=== PATIENT | female | born 1985 | race Caucasian/White ===

== ENCOUNTER 2017-08-22 06:13 | Day surgery (SDC) | payer OTHER ==
[2017-08-14 09:14] VITALS: BMI 27.3
[2017-08-22 06:56] VITALS: TEMP 98.4; O2SAT 100
[2017-08-22] MEDS ORDERED: Lidocaine 2% Inj (20ml) ONE (08:06)
[2017-08-22] MEDS ORDERED: Propofol 10 mg/ml Inj (20 ML) ONE (08:06)
[2017-08-22] MEDS ORDERED: Sodium Chloride 0.9% 1,000 ML IV SCH (08:45)
[2017-08-22 09:29] VITALS: BP 118/73; PULSE 63; RESP 18
== END 2017-08-22 09:54 | disposition home or self-care (01) ==
LOC: ENDO 06:13
PROVIDERS: ATTEND Internal Medicine
DX: K51.20 Ulcerative (chronic) proctitis without complications (principal); K52.9 Noninfective gastroenteritis and colitis, unspecified; K29.50 Unspecified chronic gastritis without bleeding; B96.81 Helicobacter pylori [H. pylori] as the cause of diseases classified elsewhere; R10.13 Epigastric pain

== ENCOUNTER 2018-10-22 11:18 | Day surgery (SDC) | payer OTHER ==
[2018-10-12 17:08] VITALS: BMI 28.3
[2018-10-22] MEDS ORDERED: Propofol 10 mg/ml Inj (20 ML) ONE (14:14)
[2018-10-22] MEDS ORDERED: Sodium Chloride 0.9% 1,000 ML IV SCH (15:15)
[2018-10-22 15:27] VITALS: O2SAT 100
[2018-10-22 16:11] VITALS: BP 113/69; PULSE 63; RESP 16; TEMP 98.4
== END 2018-10-22 16:36 | disposition home or self-care (01) ==
LOC: ENDO 11:18
PROVIDERS: ATTEND Internal Medicine Gastroenterology
DX: K51.90 Ulcerative colitis, unspecified, without complications (principal); K26.9 Duodenal ulcer, unspecified as acute or chronic, without hemorrhage or perforation; R13.10 Dysphagia, unspecified
CPT/HCPCS: 43239; 84703; 87324; 88305; 88312; 88342; J2704; J7030

== ENCOUNTER 2019-01-19 09:11 | Outpatient (CLI) | payer OTHER | END 2019-01-19 09:12 | disposition home or self-care (01) | LOC: LAB 09:11 ==